=== PATIENT | female | born 1940 | race Caucasian/White ===

== ENCOUNTER 2019-02-15 23:52 | Emergency (ER) | payer MEDICARE, OTHER ==
[~2019-02-15] VITALS: Ht 172.7 cm; Wt 80.0 kg
[2019-02-16 00:05] VITALS: BP 158/125
== END 2019-02-16 01:16 | disposition left against medical advice (07) ==
LOC: ER 23:52
DX: R53.83 Other fatigue (principal); I10 Essential (primary) hypertension
CPT/HCPCS: 99283